=== PATIENT | male | born 1935 | race African-American/Black ===

== ENCOUNTER 2021-04-23 19:49 | Emergency (ER) | payer OTHER ==
[~2021-04-23] VITALS: Ht 172.7 cm; Wt 86.0 kg
[2021-04-23] MEDS ORDERED: LEVETIRACETAM 1000MG PREMIX 100 ML IV ONE (20:45)
[2021-04-23 21:03] LABS: BASOPHILS % 0.8 % (0.0-2.0); HEMATOCRIT. 23.3 % (42.0-52.0); HEMOGLOBIN. 8.1 g/dL (14.0-18.0); LYMPHOCYTES % 28.2 % (20.0-50.0); MEAN CORPUSCULAR HEMOGLOBIN 29.6 pg (28.0-32.0); MEAN CORPUSCULAR VOLUME 85.1 fL (80.0-94.0); MEAN PLATELET VOLUME 8.1 fl (7.4-10.4); MONOCYTES % 9.7 % (2.0-8.0); NEUTROPHILS % 60.3 % (40.0-76.0); PLATELET 270 x1000/uL (130-400); RED BLOOD CELL COUNT 2.74 mill/uL (4.7-6.1); RED CELL DISTRIBUTION WIDTH 15.2 % (11.6-14.6)
[2021-04-23 21:06] LABS: CHLORIDE 103 mEq/L (98-107)
[2021-04-23 21:11] LABS: ETHANOL BLOOD < 10 mg/dL
[2021-04-23] MEDS ORDERED: POTASSIUM CHLORIDE 20MEQ TABLET SR PO NR (22:00)
[2021-04-23 22:20] LABS: CLARITY URINE CLEAR (CLEAR); COLOR URINE YELLOW (YELLOW); KETONES URINE 1+ (NEGATIVE); LEUKOCYTE ESTERASE URINE NEGATIVE (NEGATIVE); NITRITE URINE NEGATIVE (NEGATIVE); OCCULT BLOOD URINE 1+ (NEGATIVE); PH URINE 5.5 (4.5-8.0); PROTEIN URINE 2+ (NEGATIVE); SPECIFIC GRAVITY URINE 1.013 (1.005-1.030)
[2021-04-23 22:33] LABS: *AMPHETAMINES SCREEN URINE NEGATIVE (NEGATIVE)
[2021-04-23 22:34] LABS: *BARBITURATES SCREEN URINE NEGATIVE (NEGATIVE); *BENZODIAZEPINES SCREEN URINE NEGATIVE (NEGATIVE); *COCAINE SCREEN URINE NEGATIVE (NEGATIVE); METHADONE URINE SCREEN NEGATIVE (NEGATIVE); OPIATES URINE SCREEN NEGATIVE (NEGATIVE); PHENCYCLIDINE URINE SCREEN NEGATIVE (NEGATIVE)
[2021-04-23 22:35] LABS: CANNABINOID URINE SCREEN NEGATIVE (NEGATIVE)
[2021-04-23] MEDS ORDERED: KEPP500 MT (22:51)
[2021-04-23 23:00] VITALS: BP 107/59
== END 2021-04-23 23:45 | disposition home or self-care (01) ==
LOC: ER 19:49
DX: R56.9 Unspecified convulsions (principal)
CPT/HCPCS: 36415; 70450; 71045; 80053; 80305; 80320; 81003; 82962; 83880; 84484; 85025; 93005; 96365; 99285; J1953; G0480